=== PATIENT | male | born 1955 | race Caucasian/White ===

== ENCOUNTER 2017-01-27 18:06 | Emergency (ER) | payer OTHER ==
[2017-01-27] MEDS ORDERED: Lidocaine 1% 20 ML MDV INJECT ONE (19:31)
[2017-01-27] MEDS ORDERED: Bacitracin Oint 1 GM U/D Packet TOP ONE (19:31)
[2017-01-27 19:37] VITALS: BP 136/93
--- NOTE | 2017-01-27 20:19 | EDM.PDOC ---
ED HPI GENERAL MEDICAL PROBLEM - General Chief Complaint: Laceration Stated Complaint: CUT LEFT HAND WITH AX Time Seen by Provider: 01/27/17 19:45 Source of Information: Reports: Patient History Limitations: Reports: No Limitations - History of Present Illness INITIAL COMMENTS - FREE TEXT/NARRATIVE: 61-year-old male with a left hand laceration, he accidentally struck the back of his left hand with an axe blade. Onset: Today Duration: Hour(s): (1 hour ago) Location: Reports: Upper Extremity, Left Severity: Moderate - Related Data Allergies Allergy/AdvReac Type Severity Reaction Status Date / Time No Known Allergies Allergy Verified 01/27/17 19:34 Home Meds: Home Meds Atenolol 1 tab PO DAILY 01/27/17 [History] Hydrochlorothiazide 1 tab PO DAILY 01/27/17 [History] Past Medical History Cardiovascular History: Reports: Hypertension Genitourinary History: Reports: Renal Disease Social & Family History - Tobacco Use Smoking Status *Q: Never Smoker Second Hand Smoke Exposure: Yes - Caffeine Use Caffeine Use: Reports: Coffee - Recreational Drug Use Recreational Drug Use: No ED ROS GENERAL - Review of Systems Review Of Systems: ROS reveals no pertinent complaints other than HPI. ED EXAM, SKIN/RASH Exam: See Below Exam Limited By: No Limitations General Appearance: Alert, No Apparent Distress Respiratory/Chest: No Respiratory Distress Extremities: Other (Exam is otherwise limited to the left hand. The patient has a 5 cm curved flap-like laceration on the dorsum of the hand at the base of the fourth finger extending onto the ring finger. He has full range of motion, CMS is intact.) Course - Vital Signs Last Recorded V/S: Last Vital Signs Temp 98.1 F 01/27/17 19:44 Pulse 73 01/27/17 19:44 Resp 16 01/27/17 19:44 BP 136/93 H 01/27/17 19:44 Pulse Ox 93 L 01/27/17 19:44 - Orders/Labs/Meds Meds: Medications Discontinued Medications Generic Name Dose Route Start Last Admin Trade Name Freq PRN Reason Stop Dose Admin Bacitracin 1 dose 01/27/17 19:31 01/27/17 19:46 Bacitracin Oint 1 Gm TOP 01/27/17 19:32 1 dose ONETIME ONE Administration Lidocaine HCl 20 ml 01/27/17 19:31 01/27/17 19:46 Xylocaine 1% INJECT 01/27/17 19:32 20 ml ONETIME ONE Administration - Re-Assessments/Exams Free Text/Narrative Re-Assessment/Exam: 01/27/17 20:41 The area was infiltrated with lidocaine, cleansed thoroughly with saline and 13 4-0 Ethilon sutures are used to close the laceration. Patient is current on tetanus status. Departure - Departure Time of Disposition: 20:42 Disposition: Home, Self-Care 01 Preliminary Cause of *Q: Sepsis & Multi System Organ Failure Condition: Good Clinical Impression: Laceration of hand Qualifiers: Encounter type: initial encounter Foreign body presence: without foreign body Laterality: left Qualified Code(s): S61.412A - Laceration without foreign body of left hand, initial encounter - Discharge Information Instructions: Laceration Care, Adult, [id number] Referrals: PCP,None [Primary Care Provider] - Forms: ED Department Discharge Care Plan Goals: Keep wound covered and clean while healing. Increase activity as tolerated. Sutures can be removed in 8 or 9 days, recheck sooner if concerns of infection or if if not healing satisfactorily.
== END 2017-01-27 20:15 | disposition home or self-care (01) ==
LOC: JP.ED 18:06
DX: S61.215A Laceration without foreign body of left ring finger without damage to nail, initial encounter (principal); W27.0XXA Contact with workbench tool, initial encounter; Z79.899 Other long term (current) drug therapy
CPT/HCPCS: 12002; 99283-25